=== PATIENT | male | born 1980 | race Caucasian/White ===

== ENCOUNTER 2018-03-11 22:14 | Emergency (ER) | payer OTHER | END 2018-03-11 23:25 | disposition home or self-care (01) | LOC: ERS 22:14 | DX: H61.23 Impacted cerumen, bilateral (principal); I10 Essential (primary) hypertension; M10.9 Gout, unspecified; F17.220 Nicotine dependence, chewing tobacco, uncomplicated | CPT/HCPCS: 69209 ==

== ENCOUNTER 2019-08-18 17:16 | Emergency (ER) | payer SELFPAY ==
[2019-08-18] MEDS ORDERED: Ketorolac Tromethamine 60 MG/2 ML VIAL ONE (18:33)
--- NOTE | 2019-08-18 20:06 | RAD ---
RIGHT KNEE FOUR VIEWS: HISTORY: Knee pain. FINDINGS: Joint spaces appear normal. No fracture or osseous abnormality. Fullness in the suprapatellar region suggests a small joint effusion. IMPRESSION: Evidence of small joint effusion. No osseous abnormality identified. POS: AGW
== END 2019-08-18 19:50 | disposition home or self-care (01) ==
LOC: ERS 17:16
DX: M25.461 Effusion, right knee (principal); I10 Essential (primary) hypertension; M10.9 Gout, unspecified; F17.220 Nicotine dependence, chewing tobacco, uncomplicated; Z79.899 Other long term (current) drug therapy
CPT/HCPCS: 96372; J1885

== ENCOUNTER 2019-09-01 17:42 | Emergency (ER) | payer SELFPAY ==
[~2019-09-01 17:42] MED LIST: Iopamidol 370 76% 100 ML VIAL ONE
--- NOTE | 2019-09-01 18:50 | ULT ---
EXAM: Left lower extremity venous ultrasound HISTORY: Left lower extremity pain and edema COMPARISON: None TECHNIQUE: Multiplanar grayscale and color Doppler images were obtained in a left lower extremity yoli ous ultrasound. Spectral analysis of the Doppler waveforms were performed. FINDINGS: The common femoral vein, profunda femoral vein, superficial femoral vein, and popliteal vei n are normal in appearance without visible thrombus. These vessels demonstrate normal compression, flow, and augmentation. The posterior tibial vein and greater saphenous vein are patent without evidence of thrombus. IMPRESSION: No evidence of DVT.
[2019-09-01] MEDS ORDERED: Morphine 4 MG/ML VIAL ONE (20:43)
[2019-09-01 21:17] LABS: #Basophils 0.1 thou/uL (0.0-0.2); #Eosinphils 0.2 thou/uL (0.0-0.7); #Lymphocytes 2.7 thou/uL (1.20-3.40); #Monocytes 0.6 thou/uL (0.11-0.59); #Neutrophils 7.9 thou/uL (1.40-6.50); %Basophils 0.5 % (0.0-1.0); %Lymphocytes 23.4 % (21.0-51.0); %Monocytes 5.3 % (0.0-10.0); %Neutrophils 68.9 % (42.0-75.0); Hemoglobin 15.3 g/dL (14.0-18.0); Mean Corpuscular HGB CONC 33.5 g/dL (32.0-36.0); Mean Corpuscular Hemoglobin 30.1 pg (27.0-31.0); Mean Corpuscular Volume 89.9 fL (78.0-98.0); Mean Platelet Volume 9.4 fL (7.4-10.4); Platelet Count 215 thou/uL (130-400); RBC Distribution Width 12.1 % (11.5-14.5); Red Blood Cell (RBC) Count 5.09 mill/uL (4.70-6.10); White Blood Cell (WBC) Count 11.5 thou/uL (4.8-10.8)
[2019-09-01 21:36] LABS: ALT (SGPT) 30 U/L (8-55); AST (SGOT) 20 U/L (5-34); Alkaline Phosphatase 43 U/L (40-110); Anion Gap 15 mmol/L (10-20); BUN (Urea Nitrogen) 11 mg/dL (8.9-20.6); Bilirubin, Total 0.6 mg/dL (0.2-1.2); Calc. Creatinine Clearance 0 mL/min (70-130); Calcium 9.6 mg/dL (7.8-10.44); Carbon Dioxide 25 mmol/L (22-29); Chloride 105 mmol/L (98-107); Estimated GFR-MDRD 75; Glucose 92 mg/dL (70-105); Potassium 3.5 mmol/L (3.5-5.1); Sodium 141 mmol/L (136-145)
--- NOTE | 2019-09-01 22:31 | CT ---
EXAM: CTA of the abdomen, pelvis, and bilateral lower extremities HISTORY: Left leg pain with poor pulses in the left leg COMPARISON: None TECHNIQUE: Multiple contiguous axial images were obtained a CTA of the abdomen, pelvis, and bilateral lower extremities with contrast. Sagittal and coronal 3-D MIP reformats were performed. FINDINGS: Liver: Unremarkable. Gallbladder: Unremarkable. Kidneys: Unremarkable. Adrenal glands: Unremarkable. Spleen: Unremarkable. Pancreas: Unremarkable. Bowel: Unremarkable. Reproductive organs :Unremarkable. Retroperitoneum: No lymphadenopathy Bones: Degenerative changes in the spine. Inferior thorax: Unremarkable. Abdominal aorta. Normal caliber without evidence of dissection or aneurysmal dilatation. Celiac trunk: Patent SMA: Patent MIRANDA: Patent Renal arteries: Bilateral single renal arteries without significant atherosclerotic disease Bilateral common iliac arteries: Unremarkable. Internal iliac arteries: Unremarkable. External iliac arteries: Unremarkable. Common femoral arteries: Unremarkable. Profunda femoral arteries: Unremarkable. Superficial femoral arteries: Unremarkable. Popliteal arteries: Unremarkable. Right lower extremity: Patent anterior tibial artery. There is a long tibioperoneal trunk which event ually becomes the posterior tibial artery at the level of the ankle. No significant stenosis. Left lower extremity: Patent anterior tibial artery. There is a long tibioperoneal trunk which eventu ally becomes the posterior tibial artery at the level of the ankle. No significant stenosis. IMPRESSION: No significant peripheral vascular disease
== END 2019-09-01 23:51 | disposition home or self-care (01) ==
LOC: ERS 17:42
DX: M25.572 Pain in left ankle and joints of left foot (principal); I10 Essential (primary) hypertension; F17.220 Nicotine dependence, chewing tobacco, uncomplicated; Z79.899 Other long term (current) drug therapy
CPT/HCPCS: 75635; 80053; 85025; 85652; 86140; 96361; 96374; J2270; Q9967

== ENCOUNTER 2023-11-29 07:49 | Outpatient (CLI) | payer OTHER ==
[2023-11-29 08:38] LABS: #Basophils 0.1 10x3/uL (0.0-0.2); #Eosinphils 0.1 10x3/uL (0.0-0.5); #Monocytes 0.4 10x3/uL (0.0-1.1); %Eosinophils 1.3 % (0.0-6.0); %Lymphocytes 19.6 % (18.0-47.0); %Monocytes 6.2 % (0.0-10.0); %Neutrophils 70.3 % (40.0-75.0); Hematocrit 46.6 % (38.8-50.0); Hemoglobin 16.2 g/dL (13.5-17.5); Mean Corpuscular HGB CONC 34.8 g/dL (32.0-36.0); Mean Corpuscular Hemoglobin 30.8 pg (27.0-33.0); Mean Corpuscular Volume 88.6 fl (81.2-95.1); Mean Platelet Volume 11.1 fl (7.4-10.4); Platelet Count 220 10x3/uL (150-450); RBC Distribution Width 12.9 % (11.5-14.5); Red Blood Cell (RBC) Count 5.26 10x6/uL (4.32-5.72); White Blood Cell (WBC) Count 7.1 10x3/uL (3.5-10.5)
[2023-11-29 09:55] LABS: ALT (SGPT) 18 U/L (8-55); AST (SGOT) 15 U/L (5-34); Albumin 4.8 g/dL (3.5-5.0); Alkaline Phosphatase 50 U/L (40-110); Anion Gap 15 mmol/L (10-20); BUN (Urea Nitrogen) 12 mg/dL (8.9-20.6); Bilirubin, Direct 0.3 mg/dL (0.1-0.3); Bilirubin, Total 0.8 mg/dL (0.2-1.2); Calc. Creatinine Clearance 0 mL/min (70-130); Calcium 9.9 mg/dL (7.8-10.44); Carbon Dioxide 22 mmol/L (22-29); Chloride 105 mmol/L (98-107); Estimated GFR 95; Glucose 129 mg/dL (70-105); Potassium 3.9 mmol/L (3.5-5.1); Protein, Total 7.7 g/dL (6.0-8.3); Sodium 138 mmol/L (136-145)
== END 2023-11-29 07:50 | disposition home or self-care (01) ==
LOC: LABBT 07:49
PROVIDERS: ATTEND Surgery
DX: Z01.812 Encounter for preprocedural laboratory examination (principal); K82.8 Other specified diseases of gallbladder
CPT/HCPCS: 80048; 80076; 85025

== ENCOUNTER 2023-12-06 06:19 | Day surgery (SDC) | payer OTHER ==
[2023-11-29 08:20] VITALS: BMI 28.7
[2023-12-06] MEDS ORDERED: Indocyanine Green 25 MG/10 ML VIAL ONE (06:43)
[2023-12-06] MEDS ORDERED: Bupivacaine 0.25% HCL 30 ML VIAL ONE (06:44)
[2023-12-06] MEDS ORDERED: EPINEPHrine 1 MG/ML VIAL ONE (06:44)
[2023-12-06] MEDS ORDERED: PROPOFOL 20 ML ONE ×2 (07:11→09:23)
[2023-12-06] MEDS ORDERED: Rocuronium Bromide 10 MG/ML (10ML VIAL) ONE (07:12)
[2023-12-06] MEDS ORDERED: Lidocaine 1% PF 5 ML VIAL ONE (07:12)
[2023-12-06] MEDS ORDERED: CEFAZOLIN 2 GM VIAL ONE (08:10)
[2023-12-06] MEDS ORDERED: Sodium Chloride 0.9% 100 ML ONE ×2 (08:10→09:14)
[2023-12-06] MEDS ORDERED: fentaNYL PF 100 MCG/2 ML SYRINGE ONE ×2 (08:26→09:24)
[2023-12-06] MEDS ORDERED: ePHEDrine Sulfate 50 MG/10 ML VIAL ONE (08:58)
[2023-12-06] MEDS ORDERED: Ondansetron PF 4 MG/2 ML Vial ONE (09:03)
[2023-12-06] MEDS ORDERED: Dexmedetomidine 200 MCG/2 ML VIAL ONE (09:13)
[2023-12-06] MEDS ORDERED: Ketorolac Tromethamine 30 MG (1 mL) VIAL ONE (09:13)
[2023-12-06] MEDS ORDERED: Glycopyrrolate 0.2 MG/ML 5 ML SYRINGE ONE (09:14)
[2023-12-06] MEDS ORDERED: SUGAMMADEX SODIUM 200 MG/2 ML VIAL ONE (09:17)
[2023-12-06] MEDS ORDERED: traMADol HCl 50 MG TAB ONE (11:52)
== END 2023-12-06 12:05 | disposition home or self-care (01) ==
LOC: SDC 06:19
PROVIDERS: ATTEND Surgery
PROC: 0FT44ZZ Resection of Gallbladder, Percutaneous Endoscopic Approach (ICD-10-PCS; principal; 2023-12-06)
DX: K80.10 Calculus of gallbladder with chronic cholecystitis without obstruction (principal); K82.8 Other specified diseases of gallbladder; I10 Essential (primary) hypertension; Z79.899 Other long term (current) drug therapy
CPT/HCPCS: 88304; J0171; J0665; J1885; J2405; J2704; J3490

== ENCOUNTER 2025-07-15 21:12 | Emergency (ER) | payer OTHER ==
[2025-07-15] MEDS ORDERED: Ketorolac Tromethamine 30 MG (1 mL) VIAL ONE (23:00)
== END 2025-07-16 00:13 | disposition home or self-care (01) ==
LOC: ERS 21:12
DX: M25.572 Pain in left ankle and joints of left foot (principal); I10 Essential (primary) hypertension; F17.220 Nicotine dependence, chewing tobacco, uncomplicated
CPT/HCPCS: 96372; J1885